=== PATIENT | female | born 1955 | race African-American/Black ===

== ENCOUNTER 2016-09-30 23:51 | Observation (INO) | payer BC ==
--- NOTE | ~2016-09-30 | HP ---
History And Physical [address] [place]. [address] NAME: DOM MEJIA : 53 STATUS : ADM Padma PAT#: [id number] AGE: 61 ADM/REG DATE : 09/30/16 MR#: [id number] REPORT SERV DATE: 10/01/16 DICTATED BY: JASS ARITA DATE: 10/01/16 REPORT STATUS : Draft TRANSCRIBED BY: MODAstrid DATE: 10/01/16 DATE OF ADMISSION: 09/30/2016 CHIEF COMPLAINT: A 61-year-old female presenting with syncopal episode and alcoholism. HISTORY OF PRESENT ILLNESS: The patient's history was obtained through careful interview with the patient and coupled with review of [facility] and [facility] medical records. About four days prior to admission, the patient believed she has developed "the stomach bug." She has had nausea, vomiting, and diarrhea. The diarrhea is actually improved over the last two days. She describes diffuse abdominal discomfort, a pressure and cramping like quality, 10/10 severity. She states because of this, "I have been popping pain pills". Her vomiting has become quite severe. She has had no real food intake for three or four days, but she has continued to drink her regular amount of angely. She has had no shortness of breath. No chest pain. She has had a hoarseness of her voice associated with vomiting. She has been very weak, off balance, dizzy, lightheaded. She states that she can't hold things properly in her hands. This evening she was sitting over with her and suddenly slumped over drooling and became unresponsive for several minutes before she was aroused again. Right after this episode she vomited profusely. REVIEW OF SYSTEMS: Otherwise, a 14-point review of systems was obtained and was negative. PAST MEDICAL HISTORY: 1. Alcoholism. 2. Pancreatitis. 3. Irritable bowel syndrome. 4. Peptic ulcer disease in the 1980s with no recurrence since then. 5. Supraventricular tachycardia by Holter monitor. 6. Hypertension. 7. Thrombocytopenia. PAST SURGICAL HISTORY: 1. Cholecystectomy. 2. . 3. Multiple abscesses with incision and drainage. Once a very large one in the axilla. ALLERGIES: TO DEMEROL, ASPIRIN, AND PINEAPPLE. History And Physical [address] [place]. [address] NAME: DOM MEJIA : 53 STATUS : ADM Padma PAT#: [id number] AGE: 61 ADM/REG DATE : 09/30/16 MR#: [id number] REPORT SERV DATE: 10/01/16 DICTATED BY: JASS ARITA DATE: 10/01/16 REPORT STATUS : Draft TRANSCRIBED BY: ITALIA DATE: 10/01/16 SOCIAL HISTORY: The patient is a smoker. Drinks a heavy amount of angely. She is , has grandchildren who live locally, but all of her children live "out of town". FAMILY HISTORY: Diabetes and congestive heart failure. CURRENT MEDICATIONS: 1. Benazepril 20 mg p.o. daily. 2. Coreg 3.125 mg p.o. b.i.d. 3. Hydrochlorothiazide 25 mg p.o. daily. 4. Mobic 7.5 mg p.o. b.i.d. 5. Afrin nasal spray. 6. Potassium 10 mEq p.o. b.i.d. 7. Phenergan p.r.n. PHYSICAL EXAMINATION: VITAL SIGNS: Temperature 97.7, pulse 99, blood pressure 93/70, respiratory rate 18, and O2 saturation 95% on room air. GENERAL: A pleasant, cooperative female. She appears to be intoxicated with alcohol, but in no acute distress. Otherwise, I have not witnessed any vomiting here in the emergency department. HEENT: Pupils equal, round, and reactive to light. No conjunctival pallor. No scleral icterus. Nares are patent. Oropharynx is clear of obstruction. Extremely dry mucous membranes with cracking of the tongue and lips and oral mucous membranes. NECK: Trachea midline. No thyromegaly. LYMPH: No cervical lymphadenopathy. No supraclavicular lymphadenopathy. RESPIRATORY: Clear to auscultation at bases. No wheezes, rales, or rhonchi. Normal respiratory effort. CARDIOVASCULAR: Regular rate and rhythm. No murmurs, rubs, or gallops. No extremity edema is appreciated. ABDOMEN: Minimal epigastric abdominal discomfort, but no guarding, no rebound, no hepatosplenomegaly. DERMATOLOGICAL: Warm and dry extremities. No pallor. No cyanosis. PSYCHIATRIC: Normal affect. Very pleasant mood. Alert and oriented x3. LABORATORY DATA: White blood cell count 5.9, hemoglobin 13, hematocrit 37, and platelets 98. Sodium 136, potassium 4.8, chloride 102, bicarb 23, BUN 38, creatinine 2.51 from a baseline creatinine of about 0.9, and glucose 101. Urinalysis shows no evidence of infection, but 69 hyaline casts. Lactic acid 2.8. INR 1.1. Lipase 168. Troponin negative. STUDIES: 1. Chest x-ray by my own evaluation shows chronic atelectasis changes stable since July 2016. History And Physical [address] [address] NAME: DOM MEJIA : 53 STATUS : ADM Padma PAT#: [id number] AGE: 61 ADM/REG DATE : 09/30/16 MR#: [id number] REPORT SERV DATE: 10/01/16 DICTATED BY: JASS ARITA DATE: 10/01/16 REPORT STATUS : Draft TRANSCRIBED BY: MODL DATE: 10/01/16 2. EKG by my own evaluation shows sinus rhythm, left atrial abnormality, large Q-waves in the inferior leads that are stable. 3. CT scan of the abdomen shows chronic pancreatitis changes, but no acute abnormality. ASSESSMENT AND PLAN: 1. Syncope secondary to hypotension and dehydration. Place on IV fluids and monitor. 2. Acute kidney injury. Place on IV fluids. Provide supportive care. 3. Lactic acidosis. Provide supportive care of blood pressure. Place on IV fluids. 4. Hypertension. IV fluids. Hold blood pressure medications. 5. Alcoholism. Place on a banana bag IV daily. History of withdrawal, we will place on scheduled Librium, p.r.n. Ativan IV. 6. Chronic pancreatitis. Counseled alcohol abstinence. KPL/MODL Jass Arita M.D. / [id number] CC: Allan Mayo Jr, MD Mark Jenkins, PA-C
--- NOTE | ~2016-09-30 | DS ---
Discharge Summary [facility] [address] [place]. [address] NAME: DOM MEJIA : 53 STATUS : DIS Padma PAT#: [id number] AGE: 61 ADM/REG DATE : 09/30/16 MR#: [id number] REPORT SERV DATE: 10/03/16 DICTATED BY: GAUTAM ROTH DATE: 10/02/16 REPORT STATUS : Draft TRANSCRIBED BY: MODL DATE: 10/02/16 ADMISSION DATE: 09/30/2016 DISCHARGE DATE: 10/02/2016 DISCHARGE DIAGNOSES: 1. Syncope. 2. Acute kidney injury, resolved. 3. Hypotension, resolved. 4. Lactic acidosis, resolved. 5. Chronic pancreatitis. 6. Alcohol abuse and tobacco abuse. 7. History of gastroesophageal reflux disease, gastritis, and duodenitis. DISCHARGE MEDICINES: Carvedilol 6.25 mg p.o. twice a day, new prescription was written for this; potassium chloride sustained release 10 mEq twice a day; Phenergan 25 mg every four hours p.r.n. for nausea; Lotensin 20 mg half a tablet daily; hydrochlorothiazide 25 mg daily; and Afrin nasal spray p.r.n. HISTORY OF PRESENT ILLNESS: 61-year-old, female, presented with syncopal episode and hypotension. Please see the initial H and P of Dr. Aiden Martinez. This patient was admitted to the Hospitalist Service for further evaluation and treatment. The patient was given aggressive IV hydration. Lab work was ordered and followed and numerous medication adjustments were made. She was also put on DT protocol given her history of alcoholism and history of withdrawal symptoms. HOSPITAL COURSE: I began seeing the patient on 10/01/2016 where patient was feeling some better. She stated that at home she had been taking large amount of her meloxicam to help with some abdominal pain from her "GI bug" that she was having but in review of her history, she has significant gastritis, chronic pancreatitis, duodenitis, and GERD, and also given her history of daily alcohol use I instructed her and counseled her at length to not take anymore NSAID therapy. I also counseled her extensively on complete tobacco and alcohol cessation as this will be core to her continued improvement and to decrease her chance of rehospitalization. Her creatinine had improved with IV hydration falling from 2.51 to 1.77. Her lactic acidosis had improved falling from 2.8 to 1.4. I increased her beta-inés, Coreg to 6.25 mg twice a day, and decreased her Lotensin to 10 mg daily, both of these at discharge. She continued to improve and her creatinine fell all the way to 0.95 which is her baseline, and she was felt safe for discharge home. I have instructed her to follow up with her primary care, Dr. Aj Browning in approximately three to four weeks to discuss her medication changes and for further lab work. Again, I have counseled her extensively on the need to stop smoking and stop all alcohol and stopping all NSAIDs. She was given number for smoking cessation class as well. The patient was in agreement with this plan going forward. Questions were answered extensively at bedside. Imaging during this admission includes a CT of the abdomen and pelvis showing stable pancreas consistent with chronic pancreatitis, nonspecific hepatic steatosis pattern, mild diverticulosis, but no diverticulitis and status post cholecystectomy. Discharge Summary [address] [address] NAME: DOM MEJIA : 53 STATUS : DIS Padma PAT#: [id number] AGE: 61 ADM/REG DATE : 09/30/16 MR#: [id number] REPORT SERV DATE: 10/03/16 DICTATED BY: GAUTAM ROTH DATE: 10/02/16 REPORT STATUS : Draft TRANSCRIBED BY: ITALIA DATE: 10/02/16 LUCINDA/ITALIA Gautam Roth NP / [id number] CC: Anna Low PA-C
[2016-09-30 21:28] LABS: BASOPHILS 0.2 %; BASOPHILS ABSOLUTE 0.01 10/3/uL (0.0-0.16); EOSINOPHILS 2.2 %; EOSINOPHILS ABSOLUTE 0.13 10/3/uL (0.0-0.53); HEMOGLOBIN 12.7 g/dL (12.0-16.0); IMMATURE GRANULOCYTES 0.2 %; IMMATURE GRANULOCYTES ABSOLUTE 0.01 10/3/uL (0.0-0.11); LYMPHOCYTES 18.1 %; LYMPHOCYTES ABSOLUTE 1.06 10/3/uL (0.67-4.30); MEAN CORPUS HGB CONC 34.2 g/dL (32.0-36.0); MEAN CORPUSCULAR HEMOGLOB 30.7 pg (26.0-34.0); MEAN CORPUSCULAR VOLUME 89.6 fL (80-100); MEAN PLATELET VOLUME 9.8 fL (9.2-13.0); MONOCYTES 9.9 %; MONOCYTES ABSOLUTE 0.58 10/3/uL (0.21-1.20); NEUTROPHILS 69.4 %; NEUTROPHILS ABSOLUTE 4.07 10/3/uL (2.02-8.40); RBC DISTRIBUTION WIDTH 14.5 % (12.0-16.0); RED CELL COUNT 4.14 10/6/uL (4.0-5.6)
[2016-09-30 21:30] LABS: ER CBC TAT 0 Hrs 08 Mins; HEMATOCRIT 37.1 % (36.0-48.0); MANUAL DIFF NO %; PLATELET COUNT 98 10/3/uL (150-400); WHITE BLOOD CELLS 5.9 10/3/uL (4.5-10.5)
[2016-09-30 21:43] LABS: ACETAMINOPHEN LEVEL (TYLENOL) < 2.0 MCG/ML (10.0-20.0); ALBUMIN 3.5 G/DL (3.5-5.0); ALCOHOL 214 MG/DL (0); ALKALINE PHOSPHATASE 106 U/L (45-117); BUN (BLOOD UREA NITROGEN) 38 MG/DL (6-23); CALCIUM, SERUM 8.8 MG/DL (8.5-10.4); CHEST PAIN PROFILE TAT 0 Hrs 21 Mins; CHLORIDE, SERUM 102 MMOL/L (96-112); CO2 (CARBON DIOXIDE) 23 MMOL/L (24-34); CREATININE 2.51 MG/DL (0.55-1.02); DIRECT BILIRUBIN 0.3 MG/DL (0.0-0.4); GFR AFRICAN AMERICAN 23 ML/MIN (>=60); GFR NON AFRICAN AMERICAN 20 ML/MIN (>=60); GLUCOSE, SERUM 101 MG/DL (60-99); INDIRECT BILIRUBIN(NOT ORDER) 0.3 MG/DL (0.1-0.9); POTASSIUM, SERUM 4.8 MMOL/L (3.5-5.3); SALICYLATE 2.4 MG/DL (-); SGOT(AST) 59 U/L (5-40); SGPT(ALT) 23 U/L (5-65); SODIUM, SERUM 136 MMOL/L (135-148); TOTAL BILIRUBIN 0.6 MG/DL (0-1.2); TOTAL PROTEIN 8.4 G/DL (6.0-8.5); TROPONIN I <0.02 NG/ML (<0.05)
[2016-09-30 21:44] LABS: LACTATE 2.8 MMOL/L (0.3-2.4)
[2016-09-30 21:46] LABS: INTERNATIONAL NORMAL RATI 1.1 UNITS (-); PARTIAL THROMBO TIME 23.1 SEC (22.5-37.2); PROTIME (NOT ORD) 14.1 SEC (12.0-14.5)
[2016-09-30 22:30] LABS: ASCORBIC ACID (UR NOT ORDER) NEG (NEG); BILIRUBIN, URINE NEGATIVE (NEG); ER URINALYSIS TAT 0 Hrs 08 Mins; KETONE, URINE NEGATIVE (NEG); LEUKOCYTE ESTERASE(NOT OR NEG (NEG); NITRITE (URINE) NEG (NEG); WBC (NOT ORDERED) (RFLEX) 3 (0-5)
[2016-09-30 22:58] LABS: AMPHETAMINES (NOT ORD) NEG (NEG); BARBITURATES (NOT ORDERED NEG (NEG); BENZODIAZEPINES (NOT ORD) NEG (NEG); CANNABINOIDS (THC) NEG (NEG); COCAINE (NOT ORDERED) NEG (NEG); OPIATES NEG (NEG); PHENCYCLIDINE(PCP) NEG (NEG); TRICYCLICS NEG (NEG)
[~2016-09-30 23:51] MED LIST: AFRIN15 NAS; AT10 PO; BENTYL20 PO; BIST PO; BP MEDICINE; COREG3 PO; HYDROCHLOROT25 MG PO; HYDROXYZINE 10 MG PO; KDUR10 PO; KLOR-CON 1010 MEQ PO; LOTE20 PO; MAGOX4 PO; MICRO-K10 MEQ PO; MIRALAXPKT PO; MOBIC7.5 PO; NORV10 PO; PR25 PO; PRILO PO; PRILOSEC40 MG PO; ULTRAM50 PO; ZANTAC
[2016-10-01 03:51] LABS: BASOPHILS 0.2 %; BASOPHILS ABSOLUTE 0.01 10/3/uL (0.0-0.16); EOSINOPHILS 2.7 %; EOSINOPHILS ABSOLUTE 0.12 10/3/uL (0.0-0.53); HEMATOCRIT 30.4 % (36.0-48.0); HEMOGLOBIN 10.3 g/dL (12.0-16.0); IMMATURE GRANULOCYTES 0.2 %; IMMATURE GRANULOCYTES ABSOLUTE 0.01 10/3/uL (0.0-0.11); LYMPHOCYTES 28.3 %; LYMPHOCYTES ABSOLUTE 1.27 10/3/uL (0.67-4.30); MANUAL DIFF NO %; MEAN CORPUS HGB CONC 33.9 g/dL (32.0-36.0); MEAN CORPUSCULAR HEMOGLOB 30.4 pg (26.0-34.0); MEAN CORPUSCULAR VOLUME 89.7 fL (80-100); MEAN PLATELET VOLUME 9.5 fL (9.2-13.0); MONOCYTES 10.9 %; MONOCYTES ABSOLUTE 0.49 10/3/uL (0.21-1.20); NEUTROPHILS 57.7 %; NEUTROPHILS ABSOLUTE 2.58 10/3/uL (2.02-8.40); PLATELET COUNT 80 10/3/uL (150-400); RBC DISTRIBUTION WIDTH 14.6 % (12.0-16.0); RED CELL COUNT 3.39 10/6/uL (4.0-5.6); WHITE BLOOD CELLS 4.5 10/3/uL (4.5-10.5)
[2016-10-01 03:56] LABS: INTERNATIONAL NORMAL RATI 1.3 UNITS (-); PARTIAL THROMBO TIME 31.3 SEC (22.5-37.2); PROTIME (NOT ORD) 15.7 SEC (12.0-14.5)
[2016-10-01 04:19] LABS: ALBUMIN 3.4 G/DL (3.5-5.0); BUN (BLOOD UREA NITROGEN) 36 MG/DL (6-23); CALCIUM, SERUM 7.9 MG/DL (8.5-10.4); CHLORIDE, SERUM 108 MMOL/L (96-112); CO2 (CARBON DIOXIDE) 20 MMOL/L (24-34); POTASSIUM, SERUM 4.6 MMOL/L (3.5-5.3); SGOT(AST) 45 U/L (5-40); SGPT(ALT) 21 U/L (5-65); SODIUM, SERUM 141 MMOL/L (135-148); TOTAL BILIRUBIN 0.6 MG/DL (0-1.2); TOTAL PROTEIN 7.2 G/DL (6.0-8.5); TROPONIN I <0.02 NG/ML (<0.05)
[2016-10-01 04:22] LABS: A/G RATIO 0.9 (0.7-1.9); ALKALINE PHOSPHATASE 85 U/L (45-117); CREATININE 1.77 MG/DL (0.55-1.02); GFR AFRICAN AMERICAN 35 ML/MIN (>=60); GFR NON AFRICAN AMERICAN 30 ML/MIN (>=60); GLOBULIN 3.8 G/DL (2.5-4.1); GLUCOSE, SERUM 78 MG/DL (60-99)
[2016-10-02 04:20] LABS: CALCIUM, SERUM 8.5 MG/DL (8.5-10.4); CHLORIDE, SERUM 108 MMOL/L (96-112); CO2 (CARBON DIOXIDE) 23 MMOL/L (24-34); GFR AFRICAN AMERICAN 74 ML/MIN (>=60); GFR NON AFRICAN AMERICAN 64 ML/MIN (>=60); GLUCOSE, SERUM 85 MG/DL (60-99); POTASSIUM, SERUM 4.3 MMOL/L (3.5-5.3); SODIUM, SERUM 141 MMOL/L (135-148)
[2016-10-02 04:22] LABS: BUN (BLOOD UREA NITROGEN) 25 MG/DL (6-23); CREATININE 0.95 MG/DL (0.55-1.02)
[2016-10-02] MEDS ORDERED: LOTE10 PO (14:17)
[2016-10-02] MEDS ORDERED: COREG6 PO (14:18)
[2017-02-26] MEDS ORDERED: COREG6 PO (04:28)
[2017-02-26] MEDS ORDERED: LOTE20 PO (04:28)
[2017-02-26] MEDS ORDERED: BENTYL20 PO (04:28)
[2017-02-26] MEDS ORDERED: HYDROCHLOROT25 MG PO (04:29)
[2017-02-26] MEDS ORDERED: AT10 PO (04:32)
[2017-02-26] MEDS ORDERED: KLOR-CON 1010 MEQ PO (04:32)
[2017-02-26] MEDS ORDERED: MAGOX4 PO (04:33)
[2017-02-26] MEDS ORDERED: PROTONIX PO (04:33)
[2017-02-26] MEDS ORDERED: PR12.5 PO (04:34)
[2017-02-26] MEDS ORDERED: KDUR20 PO (04:34)
[2017-02-27] MEDS ORDERED: NEXIUM40 PO (10:37)
[2017-02-27] MEDS ORDERED: AMITIZA8 MCG PO (10:37)
== END 2016-10-02 14:42 | disposition home or self-care (01) ==
LOC: ER 23:51 → CDU1 23:56 → CDU2 10-01 01:09
PROVIDERS: Internal Medicine; Nurse Practitioner; Nurse Practitioner Family
DX: R55 Syncope and collapse (principal); F10.20 Alcohol dependence, uncomplicated; K58.9 Irritable bowel syndrome, unspecified; D69.6 Thrombocytopenia, unspecified; K86.1 Other chronic pancreatitis; I10 Essential (primary) hypertension; Z79.899 Other long term (current) drug therapy; Z90.49 Acquired absence of other specified parts of digestive tract; Z98.890 Other specified postprocedural states; Z88.8 Allergy status to other drugs, medicaments and biological substances; Z83.3 Family history of diabetes mellitus; Z82.49 Family history of ischemic heart disease and other diseases of the circulatory system
CPT/HCPCS: 71010; 74176; 80048; 80053; 80076; 80305; 80307; 81001; 83605; 83690; 83735; 83880; 84443; 84484; 85025; 85610; 85730; 93005; 96372; 96374; 96375; 96376; 99285; A9270-GY; G0378; J1980; J2405; J3411; P9047